=== PATIENT | female | born 1990 | race African-American/Black ===

== ENCOUNTER 2018-11-07 19:28 | Emergency (ER) | payer OTHER ==
[~2018-11-07] VITALS: Ht 165.1 cm; Wt 49.1 kg
[2018-11-07 19:50] VITALS: BP 112/63
== END 2018-11-07 23:04 | disposition left against medical advice (07) ==
LOC: EMS 19:31
DX: M79.10 Myalgia, unspecified site (principal); R07.0 Pain in throat; R09.81 Nasal congestion; Z53.21 Procedure and treatment not carried out due to patient leaving prior to being seen by health care provider

== ENCOUNTER 2019-01-19 15:58 | Emergency (ER) | payer OTHER ==
[~2019-01-19] VITALS: Ht 162.6 cm; Wt 47.7 kg
[2019-01-19 16:37] VITALS: BP 113/74
== END 2019-01-19 16:45 | disposition left against medical advice (07) ==
LOC: EMS 15:58
DX: Z53.21 Procedure and treatment not carried out due to patient leaving prior to being seen by health care provider (principal)

== ENCOUNTER 2019-01-19 17:47 | Emergency (ER) | payer OTHER ==
[~2019-01-19] VITALS: Ht 162.6 cm; Wt 47.7 kg
[2019-01-19 18:00] VITALS: BP 103/54
== END 2019-01-19 18:54 | disposition home or self-care (01) ==
LOC: EMS 17:50
DX: S01.511A Laceration without foreign body of lip, initial encounter (principal); W18.39XA Other fall on same level, initial encounter; Y93.89 Activity, other specified; Y92.89 Other specified places as the place of occurrence of the external cause; Y99.8 Other external cause status

== ENCOUNTER 2019-07-16 15:36 | Emergency (ER) | payer OTHER ==
[~2019-07-16] VITALS: Ht 175.3 cm; Wt 63.6 kg
[2019-07-16 16:25] VITALS: BP 121/69
== END 2019-07-16 17:03 | disposition home or self-care (01) ==
LOC: EMS 15:41
DX: R23.4 Changes in skin texture (principal)

== ENCOUNTER 2021-08-15 23:29 | Emergency (ER) | payer OTHER ==
[~2021-08-15] VITALS: Ht 165.1 cm; Wt 60.9 kg
[2021-08-15 23:42] VITALS: BP 119/72
== END 2021-08-16 01:00 | disposition short-term general hospital (02) ==
LOC: EMS 23:29
DX: O26.893 Other specified pregnancy related conditions, third trimester (principal); O62.0 Primary inadequate contractions; Z3A.38 38 weeks gestation of pregnancy
CPT/HCPCS: 99285; Z7502